=== PATIENT | male | born 1985 | race Caucasian/White ===

== ENCOUNTER 2017-04-19 17:33 | Emergency (ER) | payer OTHER ==
--- NOTE | 2017-04-19 17:28 | EDPHY ---
H & P Constitutional: Initial Vital Signs Temperature (C) 36.9 C 04/19/17 17:33 Heart Rate 66 04/19/17 17:33 Respiratory Rate 16 04/19/17 17:33 Blood Pressure 105/73 04/19/17 17:33 O2 Sat (%) 97 04/19/17 17:33 O2 Delivery Mode Room Air Allergies/Adverse Reactions: No Known Allergies Allergy (Verified 04/30/14 22:26) Home Medications: Medication Instructions Recorded Baclofen 04/30/14 Flexeril 10 MG (RX) 04/30/14 Methadone 5 mg (RX) 04/30/14 Oxycodon-Acetaminophen 7.5-325 04/30/14 Suboxone 04/19/17 Medical Decision Making - Diagnostics Imaging Results: Imaging Impressions Cervical Spine CT 04/19/17 17:41 Impression: Normal. CT Cervical Spine Without Contrast History: Pain. Trauma. Technique: 1.25 mm helical images were obtained from the base of the skull through T3 without contrast. Multiplanar reformation. Dose reduction techniques were utilized. Findings: Mild reversal the normal lordotic curvature. No evidence for fracture or subluxation. Disk heights are maintained. No significant spinal canal or neural foraminal encroachment. Impression: No evidence for acute fracture. Results called and discussed with Junito Wright MD at 04/19/2017 18:06. Head CT 04/19/17 17:41 Impression: Normal. CT Cervical Spine Without Contrast History: Pain. Trauma. Technique: 1.25 mm helical images were obtained from the base of the skull through T3 without contrast. Multiplanar reformation. Dose reduction techniques were utilized. Findings: Mild reversal the normal lordotic curvature. No evidence for fracture or subluxation. Disk heights are maintained. No significant spinal canal or neural foraminal encroachment. Impression: No evidence for acute fracture. Results called and discussed with Junito Wright MD at 04/19/2017 18:06. ED Course/Re-evaluation: CHIEF COMPLAINT: Syncopal episode HISTORY OF PRESENT ILLNESS: This patient is a 31 year old male arriving from half-way via EMS complaining of a syncopal episode and subsequent fall earlier today. EMS reports vitals were stable in transport. BGL 130. This is his third syncopal episode this year, of unknown etiology. He was resting on the bottom bunk in his room, stood up, and then woke up on the ground. He believes he was unconscious for 1-2 minutes. He reports he has pain in his occipital region and a deep headache, as well as neck and back pain. Per EMS report, he is not responsive to sharp painful stimuli in his left upper and lower extremities, but rather feels a pressure sensation. He states his left arm is "locked" in position, and he is unable to relax. No recent illness, fever, chills, vomiting, or other associated symptoms. REVIEW OF SYSTEMS: A 10 point review of systems was performed and is negative with the exception of the elements mentioned in the history of present illness. PHYSICAL EXAM: General Appearance: Resisting, not following commands. Alert, no distress, talking appropriately, comfortable. Head: Atraumatic without scalp tenderness or obvious injury Eyes: Pupils equal, round, reactive to light and accommodation, EOMI, no trauma , no injection. Ears: Clear bilaterally, no perforation, no hemotympanum Nose: Atraumatic, no rhinorrhea, no septal hematoma Neck: The patient arrived in a cervical collar. All Spencer C-spine rules set criteria are negative. The cervical spine is nontender and there is no pain or neurologic deficits with active range of motion. Supple, 2+ carotid upstroke bilaterally without bruit, no trauma, trachea midline. Cardiovascular: Heart is regular rate and rhythm without murmur. Bilateral carotid, radial, dorsalis pedis pulses intact. Good capillary refill all extremities. Chest: Atraumatic, equal bilateral breath sounds. Good oxygen saturations with normal minute ventilation. Chest is nontender to palpation. Gastrointestinal: Soft, nontender, non-distended. No rebound, guarding, or peritoneal signs. There is no evidence of external or internal trauma. Back: Spinal precautions were maintained as the patient was log-rolled with cervical control. There is no thoracic or lumbar spine or paraspinal tenderness. Extremities: Voluntarily maintaining fixed position with left arm. All extremities are nontender to palpation without obvious deformity. There is full active range of motion of the joints. Neurological: The patient has normal DTRs and non-focal cranial nerves, motor, sensory, and cerebellar exam Skin: No lacerations, sal[place], or abrasions. Past medical history: Opiate abuse (Suboxone) Past surgical history: Arm surgery 2009 Family history: Noncontributory. Social history: Currently incarcerated. Single. DIFFERENTIAL DIAGNOSIS: The differential diagnosis for the patient's trauma included but was not limited to intracranial injury, long bone and pelvic bone fractures, spinal injury, intra-abdominal injury, and intra-thoracic injury. MEDICAL DECISION MAKIN31 year old male presents with head, neck, and back pain secondary to a fall from standing prior to arrival. The patient appears to be voluntarily holding his left upper and lower extremities in a stiff position. Plan for CT to evaluate for acute processes and neurologic causes of the patient 's left extremity difficulties. 18:[address] Mccabe, radiologist. CT shows no acute processes. Downgraded alert based on CT result. Plan to discharge patient in good condition. Will call half-way nurse with treatment plan. Departure - Departure Disposition: Home, Routine, Self-Care Clinical Impression: Scalp contusion Qualifiers: Encounter type: initial encounter Qualified Code(s): S00.03XA - Contusion of scalp, initial encounter Condition: Good Instructions: Scalp Contusion in Adults (ED) Additional Instructions: 1. You make take Tylenol or Ibuprofen as needed for pain relief as directed by half-way medical staff. Follow up as directed by medical staff. Referrals: Patient,NotPresent [Primary Care Provider] - As per Instructions Report Scribed for: Junito Wright Report Scribed by: Luana Dalton Date of Report: 04/19/17 Time of Report: 18:09
[2017-04-19 17:47] VITALS: RESP 16; TEMP 98.4; O2SAT 97
[2017-04-19 18:33] VITALS: BP 116/55; PULSE 53
== END 2017-04-19 18:35 | disposition home or self-care (01) ==
LOC: EDUNIT#
DX: S00.03XA Contusion of scalp, initial encounter (principal); W19.XXXA Unspecified fall, initial encounter

== ENCOUNTER 2017-04-26 23:25 | Emergency (ER) | payer OTHER ==
[2017-04-26 23:35] VITALS: RESP 16; O2SAT 95
--- NOTE | 2017-04-27 00:11 | EDPHY ---
H & P Time Seen by Provider: 04/26/17 23:27 HPI/ROS: HPI Right knee injury. 31-year-old male by private vehicle with [place] police from halfway. The patient has been on crutches secondary to a sprain of his right foot. He had had negative x-rays of his right foot a couple of days ago. He reports that 1 of his crutches slipped on a wet floor as he was entering his halfway cell and he twisted his right knee and heard a pop. He complains of pain to the mid patellar area on the medial and lateral upper joint lines. No other complaint or injury. He did not hit his head. ROS: Constitutional: No fever, no chills. No weakness. Musculoskeletal: No back pain. No neck pain. As above. No other extremity pain. Skin: No rashes. No lacerations or abrasions. Neurological: No headache. No focal weakness or altered sensation. Past medical history: Heroin abuse. Arm surgery in 2008. His claim specialist is Dr. Abbott. Social history: As above. Physical Exam: General Appearance: Alert, no distress. This patient is responding to questions appropriately and in full sentences. This patient appears well- hydrated and well-nourished. Head: Normocephalic atraumatic. Eyes: Pupils equal and round no pallor or injection. No lid edema, erythema or injection. Right knee exam: No effusion. He has vague tenderness involving the anterior medial and lateral joint lines. He has an area of ecchymosis medial aspect of proximal tibia. No bony deformity, step-off or crepitus noted on palpation of this area. The right knee is stable to valgus and varus stress testing. It is stable to anterior and posterior drawer testing. The right lower extremity is neurovascularly intact. Neurological: Motor sensory function is grossly intact. Cranial nerves are normal. Gait is normal. Skin: Warm and dry, no rashes. Musculoskeletal: Neck is supple and nontender. Extremities are symmetrical. All joints range without pain or impingement. Psychiatric: No agitation. No depression. Database: EKG: Imaging: Right knee x-ray series: Negative for fracture, subluxation, dislocation. Interpreted by me. Procedures: Emergency department course: Patient sent for x-rays from triage. I reviewed the results of these x-rays with him. He was placed in a right knee immobilizer brace. He has crutches. Plan will be to have him follow up with his claim specialist, Dr. Abbott, in 2-3 days for re-evaluation and MRI as needed. He is in agreement with this plan. He has been instructed to be nonweightbearing to the right knee until seen by Dr. Abbott. He understands his follow-up. Return to emergency department precautions reviewed with him. All of his questions were answered. I discussed ibuprofen dosing. He was discharged in good condition with [facility]. Differential Diagnosis: The differential diagnosis on this patient includes but is not limited to right knee sprain. Fracture, subluxation, dislocation of the right knee unlikely. This represents a partial list of diagnoses considered. These considerations are based on history, physical exam, past history, reassessment and diagnostic testing. Smoking Status: Current some day smoker Constitutional: Initial Vital Signs Temperature (C) 36.7 C 04/26/17 23:30 Heart Rate 81 04/26/17 23:30 Respiratory Rate 16 04/26/17 23:30 Blood Pressure 117/75 04/26/17 23:30 O2 Sat (%) 95 04/26/17 23:30 O2 Delivery Mode Room Air Allergies/Adverse Reactions: No Known Allergies Allergy (Verified 04/26/17 23:30) Home Medications: Medication Instructions Recorded Baclofen 04/30/14 Flexeril 10 MG (RX) 04/30/14 Methadone 5 mg (RX) 04/30/14 Oxycodon-Acetaminophen 7.5-325 04/30/14 Suboxone 04/19/17 Medical Decision Making - Diagnostics Imaging Results: Imaging Impressions Knee X-Ray 04/26/17 23:33 Impression: No fracture or significant degenerative changes of the right knee. Departure - Departure Disposition: Home, Routine, Self-Care Clinical Impression: Right knee sprain Condition: Good Instructions: Knee Sprain (ED) Additional Instructions: Read and follow provided instructions. Follow-up with your claim specialist as discussed, Dr. Abbott, in 2-3 days for re-evaluation and further imaging as needed. Ibuprofen dosin mg every 6 hours with meals for the next 3 days only. Return to the emergency department for worsening pain, swelling, fever, discoloration or other serious concerns. Referrals: Naif Abbott MD [Medical Doctor] - As per Instructions
[2017-04-27 00:56] VITALS: BP 127/81; PULSE 66; TEMP 98.6
== END 2017-04-27 00:50 | disposition home or self-care (01) ==
LOC: EEVIPCON 23:25
DX: S83.91XA Sprain of unspecified site of right knee, initial encounter (principal); F17.200 Nicotine dependence, unspecified, uncomplicated; X58.XXXA Exposure to other specified factors, initial encounter; Y92.149 Unspecified place in prison as the place of occurrence of the external cause
CPT/HCPCS: L1830

== ENCOUNTER 2017-05-14 12:32 | Emergency (ER) | payer SELFPAY ==
[2017-05-14] MEDS ORDERED: ONDANSETRON 4 MG/2 ML VIAL ONE (13:00)
[2017-05-14] MEDS ORDERED: NS 1,000 ML IV ONE ×2 (13:02→13:06)
[2017-05-14] MEDS ORDERED: ONDANSETRON 4 MG/2 ML VIAL IVP ONE (13:02)
--- NOTE | 2017-05-14 13:11 | EDPHY ---
H & P Stated Complaint: n/v/d since yesterday Time Seen by Provider: 05/14/17 12:52 HPI/ROS: HPI: This is a 31-year-old male who presents with Chief Complaint: Nausea vomiting Location: GI Quality: Nausea vomiting Duration: 1 week Signs and Symptoms: No diarrhea, no fever, no chills, no hematemesis, no abdominal pain, + abdominal cramping right lower quadrant, + poor appetite, no groin pain Timing: Intermittent; 10 times per day Severity: Moderate Context: Patient presents with sudden onset of nausea vomiting slight 10 times per day x 1 week; denies concern food poisoning/recreational drug use. No recent antibiotic use. No history of abdominal surgery. Notes a decreased appetite; last urination this morning. He reports that he was seen by [facility] approximately 2 weeks ago and given IV fluids and I time medics in the ER and discharged home. Currently in between jobs and not sure if he has health insurance. no hx GERD/PUD/kidney stones. Modifying Factors: Has not tried any [id number] medications Comment: ROS: Constitutional: No fever, no chills, no weight loss Eyes: No blurred vision Respiratory: No shortness of breath, no cough Cardiovascular: No chest pain Gastrointestinal: + nausea, + vomiting no diarrhea Genitourinary: No dysuria Extremities: No myalgias Neurologic: No weakness, no numbness Skin: No rashes Hematologic: No bruising, no bleeding MEDICAL/SURGICAL HISTORY: Heroin use in past denies now; arm surgery 2008 Source: Patient - Personal History Current Tetanus Diphtheria and Acellular Pertussis (TDAP): Yes - Medical/Surgical History Hx Asthma: No Hx Chronic Respiratory Disease: No Hx Diabetes: No Hx Cardiac Disease: No Hx Renal Disease: No Hx Cirrhosis: No Hx Alcoholism: No Hx HIV/AIDS: No Hx Splenectomy or Spleen Trauma: No Other PMH: arm surgery 2009, opiate abuse - Social History Smoking Status: Never smoked - Physical Exam Exam: CONSTITUTIONAL: Adult white male, 1-year-old daughter sitting on lap; well appearing, awake and alert, no obvious distress HEENT: Atraumatic and normocephalic, PERRL, EOMI. Tympanic membranes clear.Oropharynx clear, no exudate and dry oral mucosa. Airway patent. No lymphadenopathy. No meningismus. Cardiovascular: Normal S1/S2, regular rate, regular rhythm, without murmur rub or gallop. PULMONARY/CHEST: Symmetrical and nontender. Clear to auscultation bilaterally Good air movement. No accessory muscle usage. ABDOMEN: Soft, nondistended, right lower quadrant tenderness, no rebound, no guarding, no peritoneal signs, no masses or organomegaly. No CVAT. Negative Rovsing/Psoas/Obturator sign. EXTREMITIES: 2/2 pulses, no deformities, no clubbing, no cyanosis or edema. NEUROLOGICAL: no focal neuro deficits. GCS 15. SKIN: Warm and dry, no erythema. no rash. Good capillary refill. Constitutional: Initial Vital Signs Temperature (C) 36.7 C 05/14/17 12:36 Heart Rate 66 05/14/17 12:36 Respiratory Rate 16 05/14/17 12:36 Blood Pressure 117/74 05/14/17 12:36 O2 Sat (%) 94 05/14/17 12:36 O2 Delivery Mode Room Air Allergies/Adverse Reactions: No Known Allergies Allergy (Verified 05/14/17 12:34) Home Medications: Medication Instructions Recorded Ondansetron Odt [Zofran Odt 4 mg 4 mg PO Q4 PRN #12 05/14/17 (*)] Pantoprazole Sodium [Protonix 40mg 40 mg PO BID #14 tab 05/14/17 (*)] Sucralfate [Carafate 1 GM (*)] 1 gm PO ACHS #28 tab 05/14/17 Medical Decision Making ED Course/Re-evaluation: Labs, urinalysis, IV fluids, IV medications, CT abdominal and pelvis scan Given 2 L of normal saline and IV Zofran Afebrile. No systemic signs. Leukocytosis noted. high normal sodium consistent with vomiting. LFTs unremarkable; no signs of obstructive pathology 1345: Reassessed patient; talking on phone and playing with 1-year-old daughter sitting on last. Reports that he still feels nauseated. No episodes of vomiting 1 at hours while in the ED. IV promethazine given. 1445: Called by Radiology and CT abdominal pelvis scan shows some mild constipation, esophagitis/reflux. No cholecystitis/appendicitis/colitis/ pancreatitis. This show 2 cm liver lesion that is consistent with a hemangioma. The patient passed p.o. trial wishes to follow up outpatient with GI for EGD candidacy which I deemed to be appropriate at this time Start PPI, carafate x 1 week and anti emetics interim Differential Diagnosis: Abdominal pain including but not limited to appendicitis, cholecystitis, gastritis and urinary tract infection. - Data Points Laboratory Results: Laboratory Results 05/14/17 12:55 05/14/17 12:55 05/14/17 05/14/17 05/14/17 14:00 12:55 12:55 WBC 13.92 10^3/uL H 10^3/uL (3.80-9.50) RBC 4.89 10^6/uL 10^6/uL (4.40-6.38) Hgb 14.0 g/dL g/dL (13.7-17.5) Hct 43.7 % % (40.0-51.0) MCV 89.4 fL fL (81.5-99.8) MCH 28.6 pg pg (27.9-34.1) MCHC 32.0 g/dL L g/dL (32.4-36.7) RDW 13.8 % % (11.5-15.2) Plt Count 305 10^3/uL 10^3/uL (150-400) MPV 10.5 fL fL (8.7-11.7) Neut % (Auto) 82.0 % H % (39.3-74.2) Lymph % (Auto) 10.6 % L % (15.0-45.0) Lewis % (Auto) 6.0 % % (4.5-13.0) Eos % (Auto) 0.6 % % (0.6-7.6) Baso % (Auto) 0.4 % % (0.3-1.7) Nucleat RBC Rel Count 0.0 % % (0.0-0.2) Absolute Neuts (auto) 11.44 10^3/uL H 10^3/uL (1.70-6.50) Absolute Lymphs (auto) 1.47 10^3/uL 10^3/uL (1.00-3.00) Absolute Monos (auto) 0.83 10^3/uL H 10^3/uL (0.30-0.80) Absolute Eos (auto) 0.08 10^3/uL 10^3/uL (0.03-0.40) Absolute Basos (auto) 0.05 10^3/uL 10^3/uL (0.02-0.10) Absolute Nucleated RBC 0.00 10^3/uL 10^3/uL (0-0.01) Immature Gran % 0.4 % % (0.0-1.1) Immature Gran # 0.05 10^3/uL 10^3/uL (0.00-0.10) Sodium 147 mEq/L H mEq/L (134-144) Potassium 4.1 mEq/L mEq/L (3.5-5.2) Chloride 102 mEq/L mEq/L (97-110) Carbon Dioxide 28 mEq/l mEq/l (22-31) Anion Gap 17 mEq/L H mEq/L (8-16) BUN 14 mg/dL mg/dL (7-23) Creatinine 0.9 mg/dL mg/dL (0.7-1.3) Estimated GFR > 60 Glucose 93 mg/dL mg/dL (70-100) Calcium 10.5 mg/dL H mg/dL (8.5-10.4) Total Bilirubin 0.9 mg/dL mg/dL (0.1-1.4) Conjugated Bilirubin 0.3 mg/dL mg/dL (0.0-0.5) Unconjugated Bilirubin 0.6 mg/dL mg/dL (0.0-1.1) AST 55 IU/L IU/L (17-59) ALT 58 IU/L IU/L (21-72) Alkaline Phosphatase 78 IU/L IU/L (38-126) Total Protein 8.7 g/dL H g/dL (6.3-8.2) Albumin 5.0 g/dL g/dL (3.5-5.0) Lipase 58 IU/L IU/L (23-300) Urine Color YELLOW Urine Appearance MODERATELY TURBID Urine pH 5.0 (5.0-7.5) Ur Specific Tillson 1.025 (1.002-1.030) Urine Protein 1+ H (NEGATIVE) Urine Ketones NEGATIVE (NEGATIVE) Urine Blood 3+ H (NEGATIVE) Urine Nitrate NEGATIVE (NEGATIVE) Urine Bilirubin NEGATIVE (NEGATIVE) Urine Urobilinogen NEGATIVE EU EU (0.2-1.0) Ur Leukocyte Esterase TRACE H (NEGATIVE) Urine RBC 50-182 /hpf H /hpf (0-3) Urine WBC 50-182 /hpf H /hpf (0-3) Ur Epithelial Cells NONE SEEN /lpf /lpf (NONE-1+) Urine Bacteria TRACE /hpf H /hpf (NONE SEEN) Urine Mucus 4+ /lpf H /lpf (NONE-1+) Urine Glucose NEGATIVE (NEGATIVE) Urine Opiates Screen NEGATIVE (NEGATIVE) Urine Barbiturates NEGATIVE (NEGATIVE) Ur Phencyclidine Scrn NEGATIVE (NEGATIVE) Ur Amphetamine Screen NEGATIVE (NEGATIVE) U Benzodiazepines Scrn NEGATIVE (NEGATIVE) Urine Cocaine Screen NEGATIVE (NEGATIVE) U Marijuana (THC) Screen NEGATIVE (NEGATIVE) Medications Given: Discontinued Medications Sodium Chloride (Ns) 1,000 mls @ 0 mls/hr IV ONCE ONE PRN Reason: Wide Open Stop: 05/14/17 13:03 Last Admin: 05/14/17 13:03 Dose: 1,000 mls Sodium Chloride (Ns) 1,000 mls @ 0 mls/hr IV EDNOW ONE; Wide Open PRN Reason: Protocol Stop: 05/14/17 13:07 Last Admin: 05/14/17 13:22 Dose: 1,000 mls Ondansetron HCl (Zofran) 4 mg IVP EDNOW ONE Stop: 05/14/17 13:03 Last Admin: 05/14/17 13:04 Dose: 4 mg Promethazine HCl (Phenergan) 25 mg IVP EDNOW ONE Stop: 05/14/17 13:39 Last Admin: 05/14/17 14:31 Dose: 25 mg Departure - Departure Disposition: Home, Routine, Self-Care Clinical Impression: Nausea and vomiting in adult Gastritis Qualifiers: Gastritis type: unspecified gastritis Chronicity: acute Gastritis bleeding: without bleeding Qualified Code(s): K29.00 - Acute gastritis without bleeding Condition: Good Instructions: Gastritis (ED), Diet for Stomach Ulcers and Gastritis (ED) Additional Instructions: Do not eat foods that irritate her stomach. Eat small frequent meals. Take all medications as prescribed. Avoid caffeine and alcohol. Follow-up with GI within 1 week. May benefit from EGD outpatient. CT scan did show 2 cm liver lesion which we have discussed previously which is likely consistent with a hemangioma and is most likely benign. This can be further evaluated outpatient with MRI of the abdomen. Referrals: Jeanine Zacarias MD [Medical Doctor] - 5-7 days, call for appt. Prescriptions: Ondansetron Odt [Zofran Odt 4 mg (*)] 4 mg PO Q4 PRN #12 PRN Reason: Nausea/Vomiting, Use 1st Pantoprazole Sodium [Protonix 40mg (*)] 40 mg PO BID #14 tab Sucralfate [Carafate 1 GM (*)] 1 gm PO ACHS #28 tab
[2017-05-14 13:14] LABS: % IMMATURE GRANULYOCYTES 0.4 % (0.0-1.1); ABSOLUTE IMMATURE GRANULOCYTES 0.05 10^3/uL (0.00-0.10); ADD DIFF? NO; ADD MORPH? NO; ADD SCAN? NO; ATYPICAL LYMPHOCYTE FLAG 0 (0-99); FRAGMENT RBC FLAG 0 (0-99); HEMATOCRIT 43.7 % (40.0-51.0); LEFT SHIFT FLG 0 (0-99); LIPEMIA HEMOLYSIS FLAG 80 (0-99); MEAN CELL HEMOGLOBIN 28.6 pg (27.9-34.1); MEAN CELL VOLUME 89.4 fL (81.5-99.8); MEAN PLATELET VOLUME 10.5 fL (8.7-11.7); PLATELET CLUMPS FLAG 0 (0-99); PLATELET COUNT 305 10^3/uL (150-400); RED BLOOD CELL COUNT 4.89 10^6/uL (4.40-6.38); RED CELL DISTRIBUTION WIDTH 13.8 % (11.5-15.2)
[2017-05-14 13:36] LABS: ALANINE AMINOTRANSFERASE 58 IU/L (21-72); ALKALINE PHOSPHATASE 78 IU/L (38-126); ANION GAP 17 mEq/L (8-16); ASPARTATE AMINOTRANSFERASE 55 IU/L (17-59); BILIRUBIN,TOTAL 0.9 mg/dL (0.1-1.4); BILIRUBIN-CONJUGATED 0.3 mg/dL (0.0-0.5); BILIRUBIN-UNCONJUGATED 0.6 mg/dL (0.0-1.1); CALCIUM 10.5 mg/dL (8.5-10.4); CARBON DIOXIDE 28 mEq/l (22-31); CHLORIDE 102 mEq/L (97-110); CREATININE 0.9 mg/dL (0.7-1.3); GLOMERULAR FILTRATION RATE > 60; GLUCOSE 93 mg/dL (70-100); POTASSIUM 4.1 mEq/L (3.5-5.2); SODIUM 147 mEq/L (134-144); TOTAL PROTEIN 8.7 g/dL (6.3-8.2)
[2017-05-14] MEDS ORDERED: PROMETHAZINE HCL 25 MG/ML INJ IVP ONE (13:38)
[2017-05-14] MEDS ORDERED: IOPAMIDOL (ISOVUE-300) 100 ML BTL ONE (13:48)
[2017-05-14 14:19] LABS: COLOR YELLOW; LEUKOCYTE ESTERASE,URINE TRACE (NEGATIVE); NITRITE,URINE NEGATIVE (NEGATIVE)
[2017-05-14 14:27] LABS: BACTERIA TRACE /hpf (NONE SEEN); MUCUS 4+ /lpf (NONE-1+); RBC,URINE 50-182 /hpf (0-3); WBC,URINE 50-182 /hpf (0-3)
[2017-05-14 15:03] VITALS: BP 129/80; PULSE 95; RESP 14; TEMP 97.2; O2SAT 92
== END 2017-05-14 15:05 | disposition home or self-care (01) ==
DX: K29.00 Acute gastritis without bleeding (principal); E86.9 Volume depletion, unspecified; R10.31 Right lower quadrant pain
CPT/HCPCS: 80305; 96374; J2405; J2550; Q9967

== ENCOUNTER 2018-12-01 23:32 | Emergency (ER) | payer SELFPAY ==
[2018-12-01 23:37] VITALS: BP 126/85
--- NOTE | 2018-12-01 23:42 | EDPHY ---
H & P Stated Complaint: accidantal knife wound to LAC, reports spurting blood [employer] Time Seen by Provider: 12/01/18 23:38 HPI/ROS: HPI: This is a 33-year-old male who presents with Chief Complaint: Left upper arm laceration Location: Left upper arm Quality: Laceration Duration: Prior to arrival Signs and Symptoms: + bleeding, no radiation, no numbness, no weakness, no tingling, no incontinence, no decreased range of motion, no swelling, no pain, no fever Timing: Acute Severity: Moderate Context: Patient is right-hand dominant, presents with his mother and 3-year- old daughter, with complaints of accidentally stabbing himself with his throwing knives prior to arrival. Patient reports that the tip of the knife went into his biceps on his left arm. He reports that blood was "squirting everywhere." Applied direct pressure to stop the bleeding. Denies radiation, weakness, paresthesias, decreased range of motion. Reports tetanus is current. Modifying Factors: Direct pressure Comment: ROS: A comprehensive 10 system review of systems is otherwise negative aside from elements mentioned in the history of present illness. MEDICAL/SURGICAL/SOCIAL HISTORY: Medical history: History of opiate abuse. Surgical history: Arm surgery Social history: with children. Employed. Born and raised in [place], [place]. CONSTITUTIONAL: Well-developed, well-nourished adult white male, awake and alert, no obvious distress HEENT: Atraumatic and normocephalic. NECK: supple, no midline tenderness Cardiovascular: Normal S1/S2, regular rate, regular rhythm, without murmur rub or gallop. PULMONARY/CHEST: Symmetrical and nontender. no crepitus. Clear to auscultation bilaterally. Good air movement. No accessory muscle usage. ABDOMEN: Soft, nondistended, nontender, no ecchymosis. EXTREMITIES: 2/2 pulses, strength 5/5, left upper arm approximately 1 in superior to the elbow crease near the biceps belly; shows 0.5 inch puncture wound with no active bleeding. Left ELBOW: Full extension to 180, flexion to 150, no tenderness over medial epicondyle, no tenderness over lateral epicondyle, no effusion. DIP/PIP/MCP flexion/extension intact with good light touch sensation. no deformities, no clubbing, no cyanosis or edema. NEUROLOGICAL: no focal neuro deficits. GCS 15. Light touch sensation intact. SKIN: Warm and dry, no erythema. no rash. Good capillary refill. Source: Patient Exam Limitations: No limitations - Personal History Current Tetanus/Diphtheria Vaccine: Yes Current Tetanus Diphtheria and Acellular Pertussis (TDAP): Yes - Medical/Surgical History Hx Asthma: No Hx Chronic Respiratory Disease: No Hx Diabetes: No Hx Cardiac Disease: No Hx Renal Disease: No Hx Cirrhosis: No Hx Alcoholism: No Hx HIV/AIDS: No Hx Splenectomy or Spleen Trauma: No Other PMH: arm surgery 2009, opiate abuse - Social History Smoking Status: Never smoked Constitutional: Initial Vital Signs Temperature (C) 36.8 C 12/01/18 23:34 Heart Rate 97 12/01/18 23:34 Respiratory Rate 18 12/01/18 23:34 Blood Pressure 126/85 H 12/01/18 23:34 O2 Sat (%) 97 12/01/18 23:34 O2 Delivery Mode Room Air Allergies/Adverse Reactions: No Known Allergies Allergy (Verified 12/01/18 23:37) Home Medications: Medication Instructions Recorded NK [No Known Home Meds] 12/01/18 Medical Decision Making Procedures: Procedure: Laceration repair. Verbal consent was obtained from the patient. The left upper arm, 1/4 inch deep puncture laceration was anesthetized in the usual fashion using 10 mL of 1 % lidocaine with epinephrine The wound was irrigated, draped and explored to its base with a gloved finger. There were no deep structures involved. No tendon injury was identified. The wound was repaired with #3, 4 0 Prolene in simple interrupted pattern. Good hemostasis was achieved and patient tolerated procedure well. Xeroform, Kerlix and Coban applied. The procedure was performed by myself. ED Course/Re-evaluation: Injury is accidental in nature Tetanus is current Local anesthesia provided and irrigated copiously Laceration repaired with 4 0 nonabsorbable sutures Xeroform and Clean sterile dressing applied Written and verbal wound care instructions provided No signs of neurovascular compromise/tenting of skin/compartment syndrome/ extremities and joints examined above and below area of concern and are neurovascularly intact. This patient was seen under the supervision of my secondary supervising physician. I evaluated care for this patient with attending. Differential Diagnosis: Differential diagnosis includes but is not limited to laceration, nerve injury, vessel injury, muscle injury, tendon injury. Departure - Departure Disposition: Home, Routine, Self-Care Clinical Impression: Laceration of left upper arm without complication Qualifiers: Encounter type: initial encounter Qualified Code(s): S41.112A - Laceration without foreign body of left upper arm, initial encounter Condition: Good Instructions: Care For Your Stitches (ED), Laceration (ED) Additional Instructions: Keep the dressing dry and in place for 48 hours. After 48 hours, you may remove the dressing; wash the site daily with mild soap and water; then pat dry. Take Tylenol 650 mg every 4 hours and/or Ibuprofen 600 mg every 8 hours with food as needed for pain. Wound Care Follow-Up: Removal of sutures in [10-14] days. Suture removal is complimentary in uncomplicated cases. Infection or abnormal findings would require reevaluation by the MD. In that case, you may be billed. Referrals: Oli Stratton MD [Medical Doctor] - As per Instructions
== END 2018-12-02 00:18 | disposition home or self-care (01) ==
PROC: 0HQBXZZ Repair Right Upper Arm Skin, External Approach (ICD-10-PCS; principal; 2018-12-01)
DX: S41.112A Laceration without foreign body of left upper arm, initial encounter (principal); W26.0XXA Contact with knife, initial encounter

== ENCOUNTER 2019-03-11 10:05 | Observation (INO) | payer OTHER | END 2019-03-11 15:12 | disposition home or self-care (01) | LOC: F1N 12:17 ==

== ENCOUNTER → 2019-03-13 | Outpatient (CLI) | payer OTHER | LOC: FIMAGING 14:20 ==